=== PATIENT | male | born 1960 | race Caucasian/White ===

== ENCOUNTER 2022-11-02 07:54 | Inpatient (IN) | payer MEDICAID ==
[~2022-11-02] VITALS: Ht 162.6 cm; Wt 71.7 kg
[2022-11-02] VITALS (10 sets, daily range): BP systolic 164–231; BP diastolic 82–115
[2022-11-02 11:24] LABS: BASOPHILS % 0.9 % (0.0-2.0); EOSINOPHILS % 3.3 % (0.0-5.0); HEMATOCRIT. 27.4 % (42.0-52.0); HEMOGLOBIN. 9.1 g/dL (14.0-18.0); LYMPHOCYTES % 12.8 % (20.0-50.0); MEAN CORPUSCULAR HEMOGLOBIN 30.1 pg (28.0-32.0); MEAN CORPUSCULAR VOLUME 90.3 fL (80.0-94.0); MEAN PLATELET VOLUME 9.2 fl (7.4-10.4); MONOCYTES % 7.2 % (2.0-8.0); NEUTROPHILS % 75.8 % (40.0-76.0); PLATELET 190 x1000/uL (130-400); RED BLOOD CELL COUNT 3.03 mill/uL (4.7-6.1); RED CELL DISTRIBUTION WIDTH 15.8 % (11.6-14.6)
[2022-11-02 11:29] LABS: CHLORIDE 109 mEq/L (98-107)
[2022-11-02 12:46] LABS: HEPATITIS B SURFACE ANTIGEN NEGATIVE
[2022-11-02] MEDS ORDERED: DOCUSATE SODIUM 100MG CAPSULE PO PRN (13:00)
[2022-11-02] MEDS ORDERED: IPRATROPIUM/ALBUTEROL 0.5-3(2.5)MG/3ML NEB HHN PRN (13:00)
[2022-11-02] MEDS ORDERED: ACETAMINOPHEN 325MG TABLET PO PRN (13:00)
[2022-11-02] MEDS ORDERED: MAGNESIUM/ALUMINUM HYDROXIDE/SIMETHICONE 30ML UDC PO PRN (13:00)
[2022-11-02] MEDS ORDERED: GUAIFENESIN 200MG/10ML SUGAR FREE UDC PO PRN (13:00)
[2022-11-02] MEDS ORDERED: ONDANSETRON HCL 4MG/2ML INJ IV PRN (13:00)
[2022-11-02] MEDS: PANTOPRAZOLE 40MG DR TABLET PO SCH (14:39)
[2022-11-02] MEDS: FOLIC ACID 1MG TABLET PO SCH (14:39)
[2022-11-02] MEDS: MULTIVITAMINS,THER W-MINERALS TABLET PO SCH (14:39)
[2022-11-02] MEDS: THIAMINE HCL 100MG TABLET PO SCH (14:39)
[2022-11-02] MEDS: CLONIDINE 0.1MG TABLET PO NR ×2 (14:40→14:43)
[2022-11-02] MEDS: ENOXAPARIN 40MG/0.4ML SYR SUBCUT SCH (14:42)
[2022-11-02] MEDS ORDERED: HYDRALAZINE 20MG/ML VIAL IV SCH (15:20)
[2022-11-02] MEDS: CLONIDINE 0.1MG TABLET PO PRN (20:44)
[2022-11-02] MEDS: EPOETIN ALFA-EPBX 4,000 UNIT/ML VIAL SUBCUT SCH (20:44)
[2022-11-02 23:42] LABS: CLARITY URINE CLEAR (CLEAR); COLOR URINE YELLOW (YELLOW); KETONES URINE NEGATIVE (NEGATIVE); LEUKOCYTE ESTERASE URINE NEGATIVE (NEGATIVE); NITRITE URINE NEGATIVE (NEGATIVE); OCCULT BLOOD URINE 2+ (NEGATIVE); PH URINE 7.5 (4.5-8.0); PROTEIN URINE 3+ (NEGATIVE); SPECIFIC GRAVITY URINE 1.009 (1.005-1.030); UROBILINOGEN URINE 0.2 E.U./dL (0.2-1.0)
[2022-11-02 23:55] LABS: *AMPHETAMINES SCREEN URINE NEGATIVE (NEGATIVE); *BARBITURATES SCREEN URINE NEGATIVE (NEGATIVE); *BENZODIAZEPINES SCREEN URINE NEGATIVE (NEGATIVE); *COCAINE SCREEN URINE NEGATIVE (NEGATIVE); CANNABINOID URINE SCREEN NEGATIVE (NEGATIVE); METHADONE URINE SCREEN NEGATIVE (NEGATIVE); OPIATES URINE SCREEN NEGATIVE (NEGATIVE); PHENCYCLIDINE URINE SCREEN NEGATIVE (NEGATIVE)
[2022-11-03] VITALS (10 sets, daily range): BP systolic 118–165; BP diastolic 63–89
[2022-11-03 06:19] LABS: BASOPHILS % 1.1 % (0.0-2.0); EOSINOPHILS % 3.7 % (0.0-5.0); HEMATOCRIT. 27.9 % (42.0-52.0); HEMOGLOBIN. 9.5 g/dL (14.0-18.0); MEAN CORPUSCULAR HEMOGLOBIN 30.3 pg (28.0-32.0); MEAN CORPUSCULAR VOLUME 89.1 fL (80.0-94.0); MEAN PLATELET VOLUME 8.3 fl (7.4-10.4); MONOCYTES % 7.7 % (2.0-8.0); NEUTROPHILS % 72.5 % (40.0-76.0); PLATELET 167 x1000/uL (130-400); RED BLOOD CELL COUNT 3.13 mill/uL (4.7-6.1); RED CELL DISTRIBUTION WIDTH 15.4 % (11.6-14.6)
[2022-11-03 07:23] LABS: CHLORIDE 105 mEq/L (98-107)
[2022-11-03 07:38] LABS: HDL CHOLESTEROL 41 mg/dL (40-59); LDL CHOLESTEROL 130 mg/dL (5-100); PHOSPHORUS 7.8 mg/dL (2.5-4.9); T4 FREE 0.94 ng/dL (0.76-1.46); TOTAL IRON BINDING CAPACITY 251 ug/dL (250-450)
[2022-11-03 07:59] LABS: FERRITIN 551 ng/mL (22-322)
[2022-11-03 08:08] LABS: VITAMIN B12 SERUM 557 pg/mL (211-911)
[2022-11-03] MEDS: FOLIC ACID 1MG TABLET PO SCH (08:42)
[2022-11-03] MEDS: FERROUS SULFATE 325MG TABLET PO SCH (08:42)
[2022-11-03] MEDS: THIAMINE HCL 100MG TABLET PO SCH (08:42)
[2022-11-03] MEDS: PANTOPRAZOLE 40MG DR TABLET PO SCH (08:42)
[2022-11-03] MEDS: MULTIVITAMINS,THER W-MINERALS TABLET PO SCH (08:42)
[2022-11-03] MEDS: ENOXAPARIN 40MG/0.4ML SYR SUBCUT SCH (13:18)
[2022-11-04] VITALS: BP 145/77
[2022-11-04 04:00] VITALS: BP 152/76
[2022-11-04] MEDS: FAMOTIDINE 20MG TABLET PO SCH (07:40)
[2022-11-04 08:00] VITALS: BP 146/84
[2022-11-04] MEDS: FOLIC ACID 1MG TABLET PO SCH (08:39)
[2022-11-04] MEDS: MULTIVITAMINS,THER W-MINERALS TABLET PO SCH (08:39)
[2022-11-04] MEDS: THIAMINE HCL 100MG TABLET PO SCH (08:39)
[2022-11-04] MEDS: FERROUS SULFATE 325MG TABLET PO SCH (08:39)
[2022-11-04] MEDS: ENOXAPARIN 30MG/0.3ML SYR SUBCUT SCH (08:40)
[2022-11-04 12:00] VITALS: BP 145/79
[2022-11-04 16:00] VITALS: BP 146/78
[2022-11-04 20:00] VITALS: BP 154/77
[2022-11-04] MEDS: EPOETIN ALFA-EPBX 4,000 UNIT/ML VIAL SUBCUT SCH (21:46)
[2022-11-05] VITALS (10 sets, daily range): BP systolic 126–170; BP diastolic 73–87
[2022-11-05] MEDS: CLONIDINE 0.1MG TABLET PO PRN ×2 (01:27→20:36)
[2022-11-05] MEDS: FAMOTIDINE 20MG TABLET PO SCH (08:59)
[2022-11-05] MEDS: MULTIVITAMINS,THER W-MINERALS TABLET PO SCH (08:59)
[2022-11-05] MEDS: THIAMINE HCL 100MG TABLET PO SCH (08:59)
[2022-11-05] MEDS: FOLIC ACID 1MG TABLET PO SCH (08:59)
[2022-11-05] MEDS: ENOXAPARIN 30MG/0.3ML SYR SUBCUT SCH (08:59)
[2022-11-05] MEDS: FERROUS SULFATE 325MG TABLET PO SCH (08:59)
[2022-11-06 04:00] VITALS: BP 125/76
[2022-11-06 08:00] VITALS: BP 156/78
[2022-11-06] MEDS: FAMOTIDINE 20MG TABLET PO SCH (08:13)
[2022-11-06] MEDS: ENOXAPARIN 30MG/0.3ML SYR SUBCUT SCH (08:13)
[2022-11-06] MEDS: THIAMINE HCL 100MG TABLET PO SCH (08:14)
[2022-11-06] MEDS: MULTIVITAMINS,THER W-MINERALS TABLET PO SCH (08:14)
[2022-11-06] MEDS: FOLIC ACID 1MG TABLET PO SCH (08:14)
[2022-11-06] MEDS: FERROUS SULFATE 325MG TABLET PO SCH (08:14)
[2022-11-06] MEDS ORDERED: AMLODIPINE 10MG TABLET PO SCH (09:00)
[2022-11-06] MEDS ORDERED: FERR-63 PO (11:45)
[2022-11-06] MEDS ORDERED: THIA100T72 PO (11:45)
[2022-11-06] MEDS ORDERED: FOLI-43 PO (11:45)
[2022-11-06] MEDS ORDERED: AMLO10TA80 PO (11:45)
[2022-11-06 11:57] LABS: HEMOGLOBIN 11.3 g/dL (14.0-18.0); MEAN CORPUSCULAR HEMOGLOBIN 29.8 pg (28.0-32.0); MEAN CORPUSCULAR VOLUME 89.8 fL (80.0-94.0); PLATELET 202 x1000/uL (130-400); RED BLOOD CELL COUNT 3.79 mill/uL (4.7-6.1); RED CELL DISTRIBUTION WIDTH 15.3 % (11.6-14.6)
[2022-11-06 12:14] VITALS: BP 105/72
[2022-11-06 12:19] LABS: PHOSPHORUS 7.7 mg/dL (2.5-4.9)
== END 2022-11-06 15:49 | disposition home or self-care (01) | DRG 425 ==
LOC: ER 08:08 → 7WST 13:18 → EDBEDREQTM 13:19 → EDBEDREQ 13:19
PROVIDERS: ADMIT Internal Medicine; ATTEND Internal Medicine
PROC: 5A1D70Z Performance of Urinary Filtration, Intermittent, Less than 6 Hours Per Day (ICD-10-PCS; principal; 2022-11-02)
PROC: 5A1D70Z Performance of Urinary Filtration, Intermittent, Less than 6 Hours Per Day (ICD-10-PCS; 2022-11-03)
PROC: 5A1D70Z Performance of Urinary Filtration, Intermittent, Less than 6 Hours Per Day (ICD-10-PCS; 2022-11-05)
DX: E87.5 Hyperkalemia (principal); G93.41 Metabolic encephalopathy; I13.2 Hypertensive heart and chronic kidney disease with heart failure and with stage 5 chronic kidney disease, or end stage renal disease; E87.70 Fluid overload, unspecified; N18.6 End stage renal disease; I50.9 Heart failure, unspecified; Z20.822 Contact with and (suspected) exposure to COVID-19; I16.0 Hypertensive urgency; R79.89 Other specified abnormal findings of blood chemistry; F41.9 Anxiety disorder, unspecified; Z91.15 Patient's noncompliance with renal dialysis; Z99.2 Dependence on renal dialysis
CPT/HCPCS: 36415; 71045; 80048; 80053; 80061; 80305; 81003; 82330; 82607; 82728; 82746; 83036; 83540; 83550; 83735; 84100; 84439; 84443; 85025; 85027; 86705; 86709; 86803; 87340; 87426; 90935; 93005; 93306; 93970; 97161; 97166; 99285; J0360; J0885; J1650